=== PATIENT | male | born 1955 ===

== ENCOUNTER 2017-01-23 11:55 | Emergency (ER) | payer MEDICAID ==
[2017-01-23 12:04] VITALS: TEMP 97.3
[2017-01-23] MEDS ORDERED: Oxycodone/Acetaminophen 5/325 mg Tab PO ONE (12:26)
--- NOTE | 2017-01-23 12:42 | ED PDOC ---
HPI: Back Time Seen by Provider: 01/23/17 12:10 Chief Complaint (Nursing): Back Pain Chief Complaint (Provider): Back Pain History Per: Patient History/Exam Limitations: no limitations Onset/Duration Of Symptoms: Days (x 5) Current Symptoms Are (Timing): Still Present Additional Complaint(s): Alex Erazo is a 61 year old male with a past medical history of hypertension and diabetes who presents to the Emergency Department complaining of back pain for the past 5 days (Wednesday, January 19). Patient states he went to [facility] 5 days ago for fall and was told he had no fractures based on X-Ray and CT results. Patient was given Flexeril and Naprosyn for pain. States there was a lot of pain yesterday when coughing or taking deep breaths. Patient feels dizzy, but denies head injury. Admits to taking medicine for blood pressure today, but denies taking medicine for pain. PMD: Ray Wong Past Medical History Reviewed: Historical Data, Nursing Documentation, Vital Signs Vital Signs: Last Vital Signs Temp 97.3 F L 01/23/17 11:58 Pulse 90 01/23/17 11:58 Resp 20 01/23/17 11:58 BP 188/110 H 01/23/17 11:58 Pulse Ox 97 01/23/17 11:58 - Medical History PMH: Diabetes, HTN - Surgical History Surgical History: No Surg Hx - Family History Family History: States: No Known Family Hx - Home Medications Home Medications: Ambulatory Orders Medication Instructions Recorded Docusate Sodium [Colace] 100 mg PO BID PRN #20 capsule 01/23/17 oxyCODONE/Acetaminophen [Percocet 1 ea PO Q6 PRN #15 tab 01/23/17 5/325 mg Tab] - Allergies Allergies/Adverse Reactions: Allergies Allergy/AdvReac Type Severity Reaction Status Date / Time No Known Allergies Allergy Verified 01/23/17 11:58 Review of Systems ROS Statement: Except As Marked, All Systems Reviewed And Found Negative Musculoskeletal: Positive for: Back Pain Neurological: Positive for: Dizziness Physical Exam - Reviewed Nursing Documentation Reviewed: Yes Vital Signs Reviewed: Yes - Physical Exam Appears: Positive for: Non-toxic Head Exam: Positive for: ATRAUMATIC, NORMAL INSPECTION, NORMOCEPHALIC Skin: Positive for: Normal Color Eye Exam: Positive for: Normal appearance Neck: Positive for: Normal Cardiovascular/Chest: Positive for: Regular Rate, Rhythm Respiratory: Positive for: Normal Breath Sounds (Clear to auscultation bilaterally), Other (Left Lateral Chest Wall Tenderness) Back: Positive for: Other (Left Lower Lumbar Pain Above Iliac Crest) Neurologic/Psych: Positive for: Alert - ECG O2 Sat by Pulse Oximetry: 97 (RA) Pulse Ox Interpretation: Normal - Progress ED Course And Treament: Percocet 0.5mg x 1 [place] [facility] [place] Patient had CT c spine/lumbar spine/ chest abd/pelvis no acute findings. xry chest: fx noted left fourth rib? no pneumothorax xry of left hip/pelvis: no acute fx noted. Incentive spirometer in ED with instructions. Medical Decision Making Medical Decision Making: Time: 12:26 Plan: - Percocet 5/325 mg Tab - Left Ribs and PA Chest X-Ray Time: 12:47 - Discussed with [facility] for 01/19/2017 results Time: 12:53 - Left Hip X-Ray Time: 13:38 - Discussed X-Ray results with patient Scribe Attestation: Documented by Antony Sims, acting as a scribe for Tommy Llanos PA-C Provider Scribe Attestation: All medical record entries made by the Scribe were at my direction and personally dictated by me. I have reviewed the chart and agree that the record accurately reflects my personal performance of the history, physical exam, medical decision making, and the department course for this patient. I have also personally directed, reviewed, and agree with the discharge instructions and disposition. Disposition - Clinical Impression Clinical Impression: Rib fracture - Patient ED Disposition Is Patient to be Admitted: No - Disposition Referrals: Ray Wong MD [Primary Care Provider] - Disposition: Routine/Home Disposition Time: 13:56 Condition: FAIR Prescriptions: Docusate Sodium [Colace] 100 mg PO BID PRN #20 capsule PRN Reason: Constipation oxyCODONE/Acetaminophen [Percocet 5/325 mg Tab] 1 ea PO Q6 PRN #15 tab PRN Reason: Pain, Severe (8-10) Instructions: Rib Fracture (ED) Forms: [employer] (Mongolian), [facility] School/Work Excuse Print Language: GREENLANDIC
[2017-01-23 14:26] VITALS: BP 170/103; PULSE 87; RESP 18
[2017-01-23 14:27] VITALS: O2SAT 97
--- NOTE | 2017-01-24 07:22 | RAD ---
PROCEDURE: Radiographs of the Chest and Left Ribs. HISTORY: R/O PNEUMOTHORAX/RIB FX COMPARISON: None available. TECHNIQUE: Frontal radiograph of the chest and multiple oblique radiographs of the left ribs were obtained. FINDINGS: LEFT RIBS: Nondisplaced left 5th rib fracture. LUNGS: Clear. PLEURA: No pneumothorax or pleural fluid. CARDIOVASCULAR: Normal sized heart. No pulmonary vascular congestion. OTHER FINDINGS: None. IMPRESSION: Nondisplaced left posterior 5th rib fracture.
--- NOTE | 2017-01-24 07:32 | RAD ---
HISTORY: hip injury COMPARISON: No prior FINDINGS: BONES: Postsurgical changes of the femoral shaft. . No fracture. JOINTS: Normal. No osteoarthritis. SOFT TISSUE: Normal. OTHER FINDINGS: None . IMPRESSION: No acute fracture.
== END 2017-01-23 14:29 | disposition home or self-care (01) ==
LOC: H.ER 11:55 → SUPCPDRO 11:55 → H.ER 14:29
DX: S22.32XA Fracture of one rib, left side, initial encounter for closed fracture (principal); X58.XXXA Exposure to other specified factors, initial encounter; E11.9 Type 2 diabetes mellitus without complications; I10 Essential (primary) hypertension